=== PATIENT | female | born 1930 | race Caucasian/White ===

== ENCOUNTER 2017-10-29 22:01 | Observation (INO) | payer MEDICARE ==
[~2017-10-29] VITALS: Ht 154.9 cm; Wt 42.2 kg
[2017-10-29 22:01] VITALS: BP 169/67; PULSE 68; RESP 16; TEMP 98.1; O2SAT 100
[~2017-10-29 22:01] MED LIST: ATRO0.05 RIGHT EYE; B COTAB3 PO; CO Q100C9 OR; TOBRSUS RIGHT EYE; VITA250L OR
[2017-10-29] MEDS ORDERED: SODIUM CHLOR 0.9% 1000 ML INJ 1,000 ML IV ONE (22:05)
[2017-10-29 22:10] VITALS: O2SAT 100
[2017-10-29 22:14] LABS: AUTOMATED NEUTROPHIL # 8.4 TH/MM3 (1.8-7.7); BASOPHIL % 0.4 % (0.0-2.0); EOSINOPHIL % 0.2 % (0.0-4.0); HEMATOCRIT 40.3 % (35.0-46.0); HEMOGLOBIN 13.1 GM/DL (11.6-15.3); LYMPH % 12.4 % (9.0-44.0); LYMPHOCYTE # 1.2 TH/MM3 (1.0-4.8); MEAN CELL VOLUME 82.6 FL (80.0-100.0); MEAN CORPUSCULAR HEMOGLOBIN 26.8 PG (27.0-34.0); MEAN CORPUSCULAR HGB CONC 32.5 % (32.0-36.0); MEAN PLATELET VOLUME 8.1 FL (7.0-11.0); MONO % 3.7 % (0.0-8.0); MONOCYTE # 0.4 TH/MM3 (0-0.9); NEUT % 83.3 % (16.0-70.0); PLATELET COUNT 426 TH/MM3 (150-450); RED BLOOD COUNT 4.88 MIL/MM3 (4.00-5.30); RED CELL DISTRIBUTION WIDTH 15.2 % (11.6-17.2); WHITE BLOOD COUNT 10.1 TH/MM3 (4.0-11.0)
[2017-10-29 22:19] LABS: CHLORIDE 102 MEQ/L (98-107); SODIUM (NA) 136 MEQ/L (136-145)
[2017-10-29 22:22] LABS: BLOOD UREA NITROGEN 22 MG/DL (7-18); CALCIUM 10.7 MG/DL (8.5-10.1); GLUCOSE,RANDOM 186 MG/DL (74-106)
[2017-10-29 22:25] LABS: GLOMERULAR FILTRATION RATE 39 ML/MIN (>89)
[2017-10-29 22:26] LABS: PROTHROMBIN TIME - PATIENT 10.4 SEC (9.8-11.6)
[2017-10-29 22:30] LABS: TROPONIN I LESS THAN 0.02 NG/ML (0.02-0.05)
--- NOTE | 2017-10-29 22:30 | RADRPT ---
EXAM DATE/TIME: 10/29/2017 22:04 [facility] COMPARISON: No previous studies available for comparison. INDICATIONS : Stroke alert. Left side weakness. Confusion. RADIATION DOSE: 42.23 CTDIvol (mGy) This report was called by Dr Fischer to Dr Harris at 2227 MEDICAL HISTORY : None SURGICAL HISTORY : None. ENCOUNTER: Initial ACUITY: 1 day PAIN SCALE: 0/10 LOCATION: cranial TECHNIQUE: Multiple contiguous axial images were obtained of the head. Using automated exposure control and adj ustment of the mA and/or kV according to patient size, radiation dose was kept as low as reasonably a chievable to obtain optimal diagnostic quality images. DICOM format image data is available electro nically for review and comparison. FINDINGS: CEREBRUM: The ventricles are normal for age. No evidence of midline shift, mass lesion, hemorrhage or acute in farction. No extra-axial fluid collections are seen. POSTERIOR FOSSA: The cerebellum and brainstem are intact. The 4th ventricle is midline. The cerebellopontine angle i s unremarkable. EXTRACRANIAL: The visualized portion of the orbits is intact. SKULL: The calvaria is intact. No evidence of skull fracture. CONCLUSION: No acute disease. José Antonio Fischer Jr., MD on October 29, 2017 at 22:26 Board Certified Radiologist. This report was verified electronically.
[2017-10-29 22:41] VITALS: RESP 16; O2SAT 100
[2017-10-29] MEDS ORDERED: SENNOSIDES 8.6 MG TAB PO PRN (22:45)
[2017-10-29] MEDS ORDERED: ASPIRIN 325 MG TAB PO ONE (22:45)
[2017-10-29] MEDS ORDERED: ONDANSETRON HCL 4 MG/2 ML VIAL IVP PRN (22:45)
[2017-10-29] MEDS ORDERED: NALOXONE HCL 0.4 MG/ML AMP IV PUSH PRN (22:45)
[2017-10-29] MEDS ORDERED: LACTULOSE SYRUP 20 GM/30 ML CUP PO PRN (22:45)
[2017-10-29] MEDS ORDERED: SODIUM CHLORIDE 0.9% FLUSH 10 ML FLUSH IV FLUSH PRN (22:45)
[2017-10-29] MEDS ORDERED: BISACODYL 10 MG SUPP RECTAL PRN (22:45)
[2017-10-29] MEDS ORDERED: ACETAMINOPHEN 325 MG TAB PO PRN (22:45)
[2017-10-29] MEDS ORDERED: MAGNESIUM HYDROXIDE SUSP 30 ML CUP PO PRN (22:45)
[2017-10-29] MEDS ORDERED: ALPR.5 PO (22:46)
[2017-10-29] MEDS ORDERED: PRED5TAB PO (22:46)
[2017-10-29] MEDS ORDERED: ASPI1TAB57 PO (22:46)
[2017-10-29] MEDS ORDERED: IODIXANOL 320 MG/ML 10 ML VIAL (for Rad CT) IVCONTRAST ONE (22:52)
--- NOTE | 2017-10-29 22:55 | RADRPT ---
EXAM DATE/TIME: 10/29/2017 22:04 [facility] COMPARISON: No previous studies available for comparison. INDICATIONS : Stroke alert. Left side weakness. Confusion. IV CONTRAST: 50 cc Visipaque (iodixanol) IV ; Cumulative dose for multiple exams. RADIATION DOSE: 43.11 CTDIvol (mGy) ; Combined studies MEDICAL HISTORY : None SURGICAL HISTORY : None. ENCOUNTER: Initial ACUITY: 1 day PAIN SCALE: 0/10 LOCATION: cranial TECHNIQUE: Volumetric scanning was performed using a multi-row detector CT scanner. The data was post processed with a variety of visualization algorithms including full volume maximum intensity projection, multi -planar sliding thin slab reformation, curved planar reformation, and surface rendering techniques. Using automated exposure control and adjustment of the mA and/or kV according to patient size, radiat ion dose was kept as low as reasonably achievable to obtain optimal diagnostic quality images. DICO M format image data is available electronically for review and comparison. FINDINGS: There is excellent visualization of the major intracranial arteries out to the second-order branch ve ssels. There is no evidence for aneurysm, vessel truncation or stenosis, and no evidence for vascula r malformation. CONCLUSION: Normal examination. José Antonio Fischer Jr., MD on October 29, 2017 at 22:51 Board Certified Radiologist. This report was verified electronically.
--- NOTE | 2017-10-29 23:00 | PD ---
HPI Chief Complaint: Stroke Alert Time Seen by Provider: 22:05 Travel History International Travel<30 days: No Contact w/Intl Traveler<30days: No Traveled to known affect area: No History of Present Illness HPI 86-year-old female arrives as a stroke alert. History is provided by the patient, by EMS and by the patient's son. The patient was at her house today and her son and [id number]-bo-jwn came over for dinner. The patient received a phone call from her sister and suddenly became confused. She walked around the house and was very anxious. She repeatedly stated I am fine. It should be noted that one 1 year ago to the day the patient's . Fire department was concern for stroke. EMS reports blood pressure approximately 180 /90. Pulse reported to be 80. Blood sugar reported to be 185. The son reports the patient lives alone. She has no history of dementia or cognitive deficit. She takes Xanax nightly for sleep. It is unclear she took some before the event this evening. She had mentioned during dinner that her a year ago to the day, and unusual, according to the son. The son and nvrrcptl-ju-wuj did not observe facial asymmetry or motor weakness on either side. There is no loss of consciousness. Son notes an episode of diarrhea occurred this morning. PFSH Past Medical History Hx Anticoagulant Therapy: Yes (ASA 81mg) Cancer: No Diabetes: No Diminished Hearing: Yes Hepatitis: No Hiatal Hernia: No Thyroid Disease: No PNEUMOCCOCAL Vaccine (Year): 1 ?: Not Menopausal: Yes Past Surgical History Eye Surgery: Yes Gynecologic Surgery: Yes (D&C) Pacemaker: No Other Surgery: Yes Social History Alcohol Use: No Tobacco Use: No Substance Use: No Allergies-Medications (Allergen,Severity, Reaction): Coded Allergies: meperidine (Unverified Allergy, Intermediate, Tachycardia, 10/29/17) Reported Meds & Prescriptions Reported Meds & Active Scripts Active Reported Prednisone 5 Mg Tab 5 Mg PO DAILY Aspirin 81 (Aspirin) 81 Mg Tabdr 81 Mg PO DAILY Xanax (Alprazolam) 0.5 Mg Tab 0.5 Mg PO BID PRN Review of Systems Except as stated in HPI: all other systems reviewed are Neg General / Constitutional: No: Chills Physical Exam Narrative GENERAL: 86-year-old female pleasant well-nourished well-developed mild distress due to anxiety and or pain Vital Signs Date Time Temp Pulse Resp B/P (MAP) Pulse Ox O2 Delivery O2 Flow Rate FiO2 10/29/17 22:01 98.1 68 16 169/67 (101) 100 SKIN: Warm and dry. HEAD: Atraumatic. Normocephalic. EYES: Pupils equal and round. No scleral icterus. No injection or drainage. ENT: No nasal bleeding or discharge. Mucous membranes pink and moist. NECK: Trachea midline. No JVD. CARDIOVASCULAR: Regular rate and rhythm. RESPIRATORY: No accessory muscle use. Clear to auscultation. Breath sounds equal bilaterally. GASTROINTESTINAL: Abdomen soft, non-tender, nondistended. Hepatic and splenic margins not palpable. MUSCULOSKELETAL: Extremities without clubbing, cyanosis, or edema. No obvious deformities. NEUROLOGICAL: Cranial nerves III through XII are normal. Motor function is equal in the upper and lower extremities. The patient has normal speech. The patient can speak in sentences here. The patient struggles with recall of her address. The patient struggles with recall of of her date of including month day and year. She can identify objects including watch and pen and name them. She can repeat simple phrases easily. There is no visual field deficit. The patient can stick out her left thumb. PSYCHIATRIC: Appropriate mood and affect; insight and judgment normal. Data Data Last Documented VS Vital Signs Date Time Temp Pulse Resp B/P (MAP) Pulse Ox O2 Delivery O2 Flow Rate FiO2 10/29/17 22:10 100 21 10/29/17 22:01 98.1 68 16 169/67 (101) Orders Orders Cath For Specimen (10/29/17 22:05) Neuro Checks Q2HX12,Q4H (10/29/17 22:05) Nursing Bedside Swallow Assess .ONCE (10/29/17 22:05) Activity Bed Rest (10/29/17 22:05) Diet Npo (10/30/17 Breakfast) Prothrombin Time / Inr (Pt) (10/29/17 22:05) Act Partial Throm Time (Ptt) (10/29/17 22:05) Complete Blood Count With Diff (10/29/17 22:05) Basic Metabolic Panel (Bmp) (10/29/17 22:05) Fibrinogen (10/29/17 22:05) Creatine Kinase (Cpk) (10/29/17 22:05) Troponin I (10/29/17 22:05) Ua Includes Microscopic (10/29/17 22:05) Drug Screen, Random Urine (10/29/17 22:05) Type And Screen (10/29/17 22:05) Ct Brain W/O Iv Contrast(Rout) (10/29/17 ) Cta Brain W Iv Contrast W 3d (10/29/17 22:05) Cta Neck W Iv Contrast W 3d (10/29/17 22:05) Electrocardiogram (10/29/17 ) Consult Neurology (10/29/17 22:05) Sodium Chlor 0.9% 1000 Ml Inj (Ns 1000 M (10/29/17 22:05) Blood Glucose (10/29/17 22:05) Ecg Monitoring (10/29/17 22:05) Iv Access Insert/Monitor (10/29/17 22:05) NPO (10/29/17 22:05) Oximetry (10/29/17 22:05) Resp Oxygen Nc Stroke (10/29/17 ) (Hub Use Only)Inp Phy Cons/Ref (10/29/17 ) Aspirin (Aspirin) (10/29/17 22:45) [place] (10/29/17 22:33) Admit Order (Ed Use Only) (10/29/17 ) Aco Coordinator / Telemetry NICOLASA.Q8H (10/29/17 22:38) Vital Signs (Adult) Q4H (10/29/17 22:38) Activity Bed Rest (10/29/17 22:38) Notify Dr: Other (10/29/17 22:38) Labs Laboratory Tests Test 10/29/17 22:10 White Blood Count 10.1 TH/MM3 Red Blood Count 4.88 MIL/MM3 Hemoglobin 13.1 GM/DL Hematocrit 40.3 % Mean Corpuscular Volume 82.6 FL Mean Corpuscular Hemoglobin 26.8 PG Mean Corpuscular Hemoglobin Concent 32.5 % Red Cell Distribution Width 15.2 % Platelet Count 426 TH/MM3 Mean Platelet Volume 8.1 FL Neutrophils (%) (Auto) 83.3 % Lymphocytes (%) (Auto) 12.4 % Monocytes (%) (Auto) 3.7 % Eosinophils (%) (Auto) 0.2 % Basophils (%) (Auto) 0.4 % Neutrophils # (Auto) 8.4 TH/MM3 Lymphocytes # (Auto) 1.2 TH/MM3 Monocytes # (Auto) 0.4 TH/MM3 Eosinophils # (Auto) 0.0 TH/MM3 Basophils # (Auto) 0.0 TH/MM3 CBC Comment DIFF FINAL Differential Comment Prothrombin Time 10.4 SEC Prothromb Time International Ratio 1.0 RATIO Activated Partial Thromboplast Time 24.3 SEC Fibrinogen 499 mg/dL Blood Urea Nitrogen 22 MG/DL Creatinine 1.30 MG/DL Random Glucose 186 MG/DL Calcium Level 10.7 MG/DL Sodium Level 136 MEQ/L Potassium Level 4.2 MEQ/L Chloride Level 102 MEQ/L Carbon Dioxide Level 26.0 MEQ/L Anion Gap 8 MEQ/L Estimat Glomerular Filtration Rate 39 ML/MIN Total Creatine Kinase 25 U/L Troponin I LESS THAN 0.02 NG/ML MDM Medical Screen Exam Complete: Yes Emergency Medical Condition: Yes Differential Diagnosis Stroke, polypharmacy, UTI, metabolic disarray Narrative Course Patient arrived and I could not definitively exclude CVA because she could not state her date of or her mailing address which is abnormal for her and evidently started acutely. CT the head is unremarkable. There is no focal motor weakness. The cranial nerves are normal. We had a long discussion with the patient's son and the patient's wiqudonl-rk-hsz. Both are opposed to using TPA. The patient will be admitted for further investigation/evaluation. Aspirin given here. Overall his case presented significant diagnostic challenge because multiple other potential etiologies may account for the very subtle neurologic deficit. I discussed this in detail with the son and daughter- in-law and both were in agreement with avoidance of TPA. Dr Manley of neurology consultation/discussion appreciated EKG shows sinus rhythm with a rate of 78 sinus arrhythmia noted. CBC & BMP Diagram 10/29/17 22:10 Calcium Level 10.7 H Last Impressions Neck CTA 10/29/172204 Signed Impressions: Service Date/Time: Sunday, October 29, 2017 22:04 - CONCLUSION: 1. Calcified atherosclerotic plaque involving the carotids bilaterally more abundant on the left than the right. No ulceration or stenosis. 2. Patent vertebral arteries. 4 mm nodule within the left upper lobe. Consideration could be made to CT of the thorax in 12 months to document stability. José Antonio Fischer Jr., MD Head CTA 10/29/172204 Signed Impressions: Service Date/Time: Sunday, October 29, 2017 22:04 - CONCLUSION: Normal examination. José Antonio Fischer Jr., MD Head CT 10/29/17 0000 Signed Impressions: Service Date/Time: Sunday, October 29, 2017 22:04 - CONCLUSION: No acute disease. José Antonio Fischer Jr., MD Critical Care Narrative Aggregate critical care time was 35 minutes. Time to perform other separately billable procedures was not included in the critical care time. My time did not include minutes spent treating any other patients simultaneously or on activities that did not directly contribute to the patient's treatment. The services I provided to this patient were to treat and/or prevent clinically significant deterioration that could result in: Permanent deficit, cardiopulmonary arrest I provided critical care services requiring my management, as noted below: Chart data review, documentation time, medication orders and management, vital sign assessments/reviewing monitor data, ordering and reviewing lab tests, ordering and interpreting/reviewing x-rays and diagnostic studies, care of the patient and discussion of the patient with the admitting physicians. Stroke Alert NIHSS NIH Stroke Scale Result: 1 NIHSS Time Completed: 22:05 Thrombolytic Contraindications Contraindications: Refusal of Treatment Diagnosis Diagnosis: Primary Impression: Altered mental status Qualified Codes: R41.82 - Altered mental status, unspecified Admitting Physician Requests: Admit Jack Harris MD October 29, 2017 23:00
--- NOTE | 2017-10-29 23:02 | RADRPT ---
EXAM DATE/TIME: 10/29/2017 22:04 [facility] COMPARISON: No previous studies available for comparison. INDICATIONS : Stroke alert. Left side weakness. Confusion. IV CONTRAST: 50 cc Visipaque (iodixanol) IV ; Cumulative dose for multiple exams. RADIATION DOSE: 43.11 CTDIvol (mGy) ; Combined studies MEDICAL HISTORY : None SURGICAL HISTORY : None. ENCOUNTER: Initial ACUITY: 1 day PAIN SCALE: 0/10 LOCATION: neck Elevated flow velocities and ICA/CCA ratios have been found to correlate with increased degrees of vessel stenosis, calculated as percentage of diameter relative to a normal segment of distal ICA/CCA. TECHNIQUE: Volumetric scanning was performed using a multirow detector CT scanner. The data was post processed with a variety of visualization algorithms including full-volume maximum intensity projection, multip lanar sliding thin-slab reformation, curved-planar reformation, and surface-rendering techniques. Us ing automated exposure control and adjustment of the mA and/or kV according to patient size, radiatio n dose was kept as low as reasonably achievable to obtain optimal diagnostic quality images. DICOM f ormat image data is available electronically for review and comparison. FINDINGS: AORTIC ARCH: Breathing motion artifact degrades the evaluation of the origin of the arch vessels. There is calcifi ed plaque involving the left subclavian artery origin but no hemodynamically significant stenosis is felt present. RIGHT CAROTID: Mild calcified plaque involving the carotid bulb and ICA origin. No ulceration or luminal narrowing. The extracranial ICA is tortuous particularly approaching the skull base. ECA and CCA are patent as w ell. LEFT CAROTID: More abundant calcified plaque involving the carotid bulb and proximal ICA than on the contralateral side. No ulceration or luminal narrowing. The extracranial ICA is torturous particularly near the sku ll base. The ECA and CCA are patent. VERTEBRALS: The vertebral arteries have a symmetric diameter. No stenotic lesions are seen. A degenerative cervical spine. A 4 mm nodule within the left upper lobe. Calcified granuloma within t he left upper lobe. CONCLUSION: 1. Calcified atherosclerotic plaque involving the carotids bilaterally more abundant on the left than the right. No ulceration or stenosis. 2. Patent vertebral arteries. 4 mm nodule within the left upper lobe. Consideration could be made to CT of the thorax in 12 months to document stability. José Antonio Fischer Jr., MD on October 29, 2017 at 22:55 Board Certified Radiologist. This report was verified electronically.
[2017-10-29 23:29] VITALS: BP 116/71; PULSE 84; RESP 16; O2SAT 100
[2017-10-29 23:55] VITALS: PULSE 72
[2017-10-30] VITALS (8 sets, daily range): BP systolic 130–165; BP diastolic 56–77; PULSE 62–81; RESP 16–20; TEMP 97.8–99.9; O2SAT 96–100
[2017-10-30 07:10] LABS: BICARBONATE 23.2 MEQ/L (21.0-32.0); CALCIUM 9.3 MG/DL (8.5-10.1); CREATININE 0.7 MG/DL (0.50-1.00)
[2017-10-30] MEDS: SODIUM CHLORIDE 0.9% FLUSH 10 ML FLUSH IV FLUSH SCH ×2 (09:00→21:29)
--- NOTE | 2017-10-30 09:00 | PD.CONS ---
History of Present Illness Service Neurology Consult Requested By Medical Team Reason for Consult CVA, AMS Primary Care Physician Vinod Tovar MD History of Present Illness 86 y/o female brought to the ER last night by her son. Her son reports they were having dinner when the pt received a phone call from her daughter. During the phone call pt became confused and began speaking gibberish. Her son took the phone and his sister reported as well she had not been making sense. The pt proceeded to try to use the remote control, her computer and other devices but kept telling her son she could not figure out how they worked. No reported weakness or sensory change. No known illness, though pt had diarrhea earlier that day. Son denies any underlying memory problems. He has dinner with her every night. She lives independently. No previous hx of stroke or TIA. Currently takes ASA 81mg at home, Prednisone after episode of shingles 2 yrs ago for post herpetic neuralgia and Xanax for her anxiety. She reports today that she needs to stop the Xanax. History is obtained from her son as the pt has difficulty giving a history. (Martina Polk) Review of Systems Constitutional: Negative except HPI Eye: Negative Except HPI ENMT: Negative except HPI Respiratory: Negative except HPI Cardiovascular: Negative except HPI Gastrointestinal: Diarrhea Jose Martin/Lymph: Negative except HPI Musculoskeletal: Negative except HPI Neurologic: Confusion Psychiatric: Anxiety All other ROS: ROS reviewed as documented in chart (Martina Polk) Past Family Social History Allergies: Coded Allergies: meperidine (Unverified Allergy, Intermediate, Tachycardia, 10/29/17) Past Medical History anxiety, shingles, post-herpetic neuralgia Past Surgical History cataract Active Ordered Medications Current Medications Medications (Trade) Dose Ordered Sig/Anisha Route Start Time Stop Time Status Last Admin Sodium Chloride 1,000 ml @ 70 mls/hr [id number] ONCE IV 10/29/17 22:05 10/30/17 12:22 10/29/17 23:03 (NS Flush) 2 ml UNSCH PRN IV FLUSH 10/29/17 22:45 (NS Flush) 2 ml BID IV FLUSH 10/30/17 09:00 (Tylenol) 650 mg Q4H PRN PO 10/29/17 22:45 (Zofran Inj) 4 mg Q6H PRN IVP 10/29/17 22:45 (Narcan Inj) 0.4 mg UNSCH PRN IV PUSH 10/29/17 22:45 (Milk Of Magnesia Liq) 30 ml Q12H PRN PO 10/29/17 22:45 (Senokot) 17.2 mg Q12H PRN PO 10/29/17 22:45 (Dulcolax Supp) 10 mg DAILY PRN RECTAL 10/29/17 22:45 (Lactulose Liq) 30 ml DAILY PRN PO 10/29/17 22:45 Family History no fam hx of dementia or stroke Social History smoked rarely many years ago, does not drink, lives alone, was a homemaker and real estate investor, now retired, has 4 children (Martina Polk) Exam I&O / VS Vital Signs Date Time Temp Pulse Resp B/P (MAP) Pulse Ox O2 Delivery O2 Flow Rate FiO2 10/30/17 08:00 99.3 74 16 139/67 (91) 96 10/30/17 04:12 99.9 71 20 160/73 (102) 98 10/30/17 00:00 98.3 67 18 165/76 (105) 100 10/29/17 23:55 72 10/29/17 23:41 10/29/17 23:29 84 16 116/71 (86) 100 Room Air 10/29/17 22:43 100 Room Air 10/29/17 22:41 16 100 Room Air 10/29/17 22:10 100 21 10/29/17 22:10 100 21 10/29/17 22:01 98.1 68 16 169/67 (101) 100 General: No acute distress Eye: PERRL, EOMI Respiratory: Non-labored respirations Cardiology: Normal rate Musculoskeletal: ROM Neurologic: Alert Psychiatric: Cooperative Exam Comments pt is alert to self and her son, she does not know the date (states October or November , , and unsure of year), cannot tell me the current president, unable to give history, she has difficulty following 2 step commands, moving all extremities against gravity, no drift or leg lag, reflexes are brisk, cataract changes noted in the right eye, no facial droop, sensory exam is unreliable, gait withheld due to fall concerns, f-n-f intact, no tremor, no ataxia, no facial asymmetry (Martina Polk) Review/Management Diagnosis/Plan: (1) Altered mental status ICD Codes: R41.82 - Altered mental status, unspecified Status: Acute Plan: CT no acute abnormalities will check MRI brain EEG for seizure vs encephalopathy labs for dementia, delirium UA pending (2) Encephalopathy ICD Codes: G93.40 - Encephalopathy, unspecified Status: Acute Plan: infectious vs metabolic EEG brain labs for underlying causes repeat BMP pending for electrolytes (3) Post herpetic neuralgia ICD Codes: B02.29 - Other postherpetic nervous system involvement Status: Chronic (4) Hypertension ICD Codes: I10 - Essential (primary) hypertension Status: Acute (5) Anxiety ICD Codes: F41.9 - Anxiety disorder, unspecified Status: Chronic Plan: takes Xanax at home, would consider changing her to SSRI once she is stabilized (6) TIA (transient ischemic attack) ICD Codes: G45.9 - Transient cerebral ischemic attack, unspecified Status: Acute Plan: TIA vs encephalopathy CT unremarkable MRI pending on ASA 81mg daily will check Lipid Panel CTA head unremarkable CTA neck no ulceration or stenosis BP control continue telemetry ECHO (Martian Polk) Diagnosis/Plan: (1) Altered mental status ICD Codes: R41.82 - Altered mental status, unspecified Status: Acute Plan: probable tia denies any excessive benzo intake takes aspirin 3x/week CT no acute abnormalities will check MRI brain- declines EEG for seizure vs encephalopathy esr significantly elevated- on prednisone for pmr at higher risk for vascular events with underlying immune condition aspirin + plavix for now; d/c aspirin in 6-8 weeks d/c planning from neuro and outpatient f/u seen and examined. d/w PA. agree with above (2) Encephalopathy ICD Codes: G93.40 - Encephalopathy, unspecified Status: Acute Plan: infectious vs metabolic EEG brain labs for underlying causes repeat BMP pending for electrolytes (Pako Art MD) Martina Polk October 30, 2017 09:00 Pako Art MD October 30, 2017 17:20
[2017-10-30 10:53] LABS: C-REACTIVE PROTEIN 1.88 MG/DL (0.00-0.30)
[2017-10-30] MEDS ORDERED: ASPIRIN 325 MG TAB PO ONE (12:45)
[2017-10-30] MEDS ORDERED: ALPRAZolam 0.5 MG TAB PO PRN (12:45)
[2017-10-30] MEDS: predniSONE 5 MG TAB PO SCH (12:45)
[2017-10-30] MEDS ORDERED: POTASSIUM CHLORIDE 10 MEQ CONTROLLED RELEASE TAB PO ONE (12:45)
[2017-10-30] MEDS ORDERED: LORazepam 2 MG/ML VIAL IV PUSH ONE (14:15)
--- NOTE | 2017-10-30 14:29 | HHI.DCPOC ---
Discharge Care Plan Diagnosis: (1) Altered mental status (2) PMR (polymyalgia rheumatica) Goals to Promote Your Health * To prevent worsening of your condition and complications * To maintain your health at the optimal level Directions to Meet Your Goals Take your medications as prescribed Follow your dietary instruction Follow activity as directed Keep your appointments as scheduled Take your immunizations and boosters as scheduled If your symptoms worsen call your PCP, if no PCP go to Urgent Care Center or Emergency Room Smoking is Dangerous to Your Health. Avoid second hand smoke Call the 24-hour hour crisis hotline for domestic abuse at Marilu Coon MD October 30, 2017 14:29
--- NOTE | 2017-10-30 14:34 | HHI.HP ---
[facility] Primary Care Physician Vinod Tovar MD Admission Diagnosis AMS Diagnoses: Chief Complaint: Acute neurological changes Travel History International Travel<30 Days: No Contact w/Intl Traveler <30 Da: No Traveled to Known Affected Are: No History of Present Illness This patient is an 86-year-old who has for the last year been suffering from anxiety and has been taking her Xanax at bedtime and in the middle the night. Patient's comes to the hospital with her family says that she was very anxious and confused at the house. There was a concern for stroke because she was unable to speak clearly. Family did bring her to the hospital for further evaluation and it is noted that the original blood pressure is 180/90. Patient does not have a history of hypertension. She normally takes prednisone for polymyalgia rheumatica and this has gotten better and the primary care doctor office was tapering her steroids so that now she is only on 5 mg a day. She has had postherpetic neuralgia but does not take narcotics for pain is no longer on treatment for that. Her emergency room exam was back to baseline and TPA was not indicated due to recovery. Patient at this time is been observed overnight appears to be back at her baseline per family was at the bedside. Patient is recommended for further evaluation due to acute neurological complaints Review of Systems Constitutional: DENIES: Diaphoretic episodes, Fatigue, Fever, Weight gain, Weight loss, Chills, Dizziness, Change in appetite, Night Sweats Endocrine: DENIES: Abnorml menstrual pattern, Heat/cold intolerance, Polydipsia , Polyuria, Polyphagia Eyes: DENIES: Blurred vision, Diplopia, Eye inflammation, Eye pain, Vision loss , Photosensitivity, Double Vision Ears, nose, mouth, throat: DENIES: Tinnitus, Hearing loss, Vertigo, Nasal discharge, Oral lesions, Throat pain, Hoarseness, Ear Pain, Running Nose, Epistaxis, Sinus Pain, Toothache, Odynophagia Respiratory: DENIES: Apneas, Cough, Snoring, Wheezing, Hemoptysis, Sputum production, Shortness of breath Cardiovascular: DENIES: Chest pain, Palpitations, Syncope, Dyspnea on Exertion , PND, Lower Extremity Edema, Orthopnea, Claudication Genitourinary: DENIES: Abnormal vaginal bleeding, Dysmenorrhea, Dyspareunia, Sexual dysfunction, Urinary frequency, Urinary incontinence, Urgency, Hematuria , Dysuria, Nocturia, Vaginal discharge Musculoskeletal: DENIES: Joint pain, Muscle aches, Stiffness, Joint Swelling, Back pain, Neck pain Integumentary: DENIES: Abnormal pigmentation, Pruritus, Rash, Nail changes, Breast masses, Breast skin changes, Nipple discharge Hematologic/lymphatic: DENIES: Bruising, Lymphadenopathy Immunologic/allergic: DENIES: Eczema, Urticaria Neurologic: DENIES: Abnormal gait, Headache, Localized weakness, Paresthesias, Seizures, Speech Problems, Tremor, Poor Balance Psychiatric: COMPLAINS OF: Confusion, DENIES: Anxiety, Mood changes, Depression , Hallucinations, Agitation, Suicidal Ideation, Homicidal Ideation, Delusions Except as stated in HPI: all other systems reviewed are Neg Past Family Social History Past Medical History Post herpetic neuralgia Polymyalgia rheumatica Anxiety Past Surgical History Denies Reported Medications Reviewed in the EMR and reviewed with her primary care provider Allergies: Coded Allergies: meperidine (Unverified Allergy, Intermediate, Tachycardia, 10/29/17) Active Ordered Medications Reviewed in the EMR Family History Family history of hypertension Social History No tobacco or alcohol dependency Takes Xanax frequently Lives alone and is a Physical Exam Vital Signs Vital Signs Date Time Temp Pulse Resp B/P (MAP) Pulse Ox O2 Delivery O2 Flow Rate FiO2 10/30/17 12:00 98.3 63 16 130/56 (80) 97 10/30/17 08:00 99.3 74 16 139/67 (91) 96 10/30/17 07:11 78 10/30/17 04:12 99.9 71 20 160/73 (102) 98 10/30/17 00:00 98.3 67 18 165/76 (105) 100 10/29/17 23:55 72 10/29/17 23:41 10/29/17 23:29 84 16 116/71 (86) 100 Room Air 10/29/17 22:43 100 Room Air 10/29/17 22:41 16 100 Room Air 10/29/17 22:10 100 21 10/29/17 22:10 100 21 10/29/17 22:01 98.1 68 16 169/67 (810) 100 Physical Exam GENERAL: This is a well-nourished, well-developed patient, who is frail SKIN: No rashes, ecchymoses or lesions. Cool and dry. HEAD: Atraumatic. Normocephalic. No temporal or scalp tenderness. EYES: Pupils equal round and reactive. Extraocular motions intact. No scleral icterus. No injection or drainage. ENT: Nose without bleeding, purulent drainage or septal hematoma. Throat without erythema, tonsillar hypertrophy or exudate. Uvula midline. Airway patent. NECK: Trachea midline. No JVD or lymphadenopathy. Supple, nontender, no meningeal signs. CARDIOVASCULAR: Regular rate and rhythm without murmurs, gallops, or rubs. RESPIRATORY: Clear to auscultation. Breath sounds equal bilaterally. No wheezes , rales, or rhonchi. GASTROINTESTINAL: Abdomen soft, non-tender, nondistended. No hepato-splenomegaly , or palpable masses. No guarding. MUSCULOSKELETAL: Extremities without clubbing, cyanosis, or edema. No joint tenderness, effusion, or edema noted. No calf tenderness. Negative Homans sign bilaterally. NEUROLOGICAL: Awake and alert. Cranial nerves II through XII intact. Motor and sensory grossly within normal limits. Five out of 5 muscle strength in all muscle groups. Normal speech. Laboratory Laboratory Tests Test 10/29/17 22:10 10/30/17 05:46 10/30/17 10:20 White Blood Count 10.1 Red Blood Count 4.88 Hemoglobin 13.1 Hematocrit 40.3 Mean Corpuscular Volume 82.6 Mean Corpuscular Hemoglobin 26.8 Mean Corpuscular Hemoglobin Concent 32.5 Red Cell Distribution Width 15.2 Platelet Count 426 Mean Platelet Volume 8.1 Neutrophils (%) (Auto) 83.3 Lymphocytes (%) (Auto) 12.4 Monocytes (%) (Auto) 3.7 Eosinophils (%) (Auto) 0.2 Basophils (%) (Auto) 0.4 Neutrophils # (Auto) 8.4 Lymphocytes # (Auto) 1.2 Monocytes # (Auto) 0.4 Eosinophils # (Auto) 0.0 Basophils # (Auto) 0.0 CBC Comment DIFF FINAL Differential Comment Prothrombin Time 10.4 Prothromb Time International Ratio 1.0 Activated Partial Thromboplast Time 24.3 Fibrinogen 499 Blood Urea Nitrogen 22 15 Creatinine 1.30 0.70 Random Glucose 186 126 Calcium Level 10.7 9.3 Sodium Level 136 140 Potassium Level 4.2 3.4 Chloride Level 102 108 Carbon Dioxide Level 26.0 23.2 Anion Gap 8 9 Estimat Glomerular Filtration Rate 39 79 Total Creatine Kinase 25 Troponin I LESS THAN 0.02 Erythrocyte Sedimentation Rate 123 Ammonia 18 C-Reactive Protein 1.88 Thyroid Stimulating Hormone 3rd Gen 1.380 Result Diagram: 10/29/17220910/30/17 0546 Imaging Last Impressions Neck CTA 10/29/172204 Signed Impressions: Service Date/Time: Sunday, October 29, 2017 22:04 - CONCLUSION: 1. Calcified atherosclerotic plaque involving the carotids bilaterally more abundant on the left than the right. No ulceration or stenosis. 2. Patent vertebral arteries. 4 mm nodule within the left upper lobe. Consideration could be made to CT of the thorax in 12 months to document stability. José Antonio Fischer Jr., MD Head CTA 10/29/172204 Signed Impressions: Service Date/Time: Sunday, October 29, 2017 22:04 - CONCLUSION: Normal examination. José Antonio Fischer Jr., MD Head CT 10/29/17 0000 Signed Impressions: Service Date/Time: Sunday, October 29, 2017 22:04 - CONCLUSION: No acute disease. José Antonio Fischer Jr., MD Assessment and Plan Problem List: (1) PMR (polymyalgia rheumatica) ICD Code: M35.3 - Polymyalgia rheumatica Plan: Patient on chronic steroids which per her primary care doctor are 5 mg daily I did speak with Dr. Tovar's office today regarding her medical history and she has a history of PMR, postherpetic neuralgia which is currently not being treated and anxiety (2) TIA (transient ischemic attack) ICD Code: G45.9 - Transient cerebral ischemic attack, unspecified Status: Acute Plan: Workup in progress as much as the patient will allow. Patient has refused her MRI. I did speak with the patient's primary care physician she does have a follow-up at the office November 23. Patient should continue aspirin She has been very apprehensive about home health care in her home and has generally declined physical therapy or rehab evaluations Marilu Cono MD October 30, 2017 14:34
[2017-10-30 15:15] LABS: CHOLESTEROL/ HDL RATIO 3.24 RATIO; HDL CHOLESTEROL 50.9 MG/DL (40.0-60.0)
[2017-10-30] MEDS ORDERED: WALKER WHEELS/F1 MIS (15:22)
[2017-10-30 15:37] LABS: FREE T4 1.19 NG/DL (0.76-1.46)
[2017-10-30 15:42] LABS: FOLATE GREATER THAN 20.0 NG/ML (3.1-17.5)
--- NOTE | 2017-10-30 17:06 | EKG ---
Date Performed: 10/29/2017 Time Performed: 22:22:16 PTAGE: 86 years EKG: Sinus rhythm WITH MARKED SINUS ARRHYTHMIA POSSIBLE LEFT ATRIAL ENLARGEMENT POSSIBLE LEFT VENTRICULAR HYPERTROPHY POSSIBLE SEPTAL MYOCARDIAL INFARCTION ABNORMAL ECG PREVIOUS TRACING : 10/31/2010 13.30 Since the previous tracing, no significant change noted DOCTOR: Carolina Mike Interpretating Date/Time 10/30/2017 17:04:32
[2017-10-30] MEDS: CLOPIDOGREL 75 MG TAB PO SCH (18:07)
[2017-10-30 20:00] LABS: BILIRUBIN, URINE NEG (NEG); BLOOD, URINE SMALL (NEG); GLUCOSE,URINE NEG (NEG); KETONE, URINE NEG (NEG); NITRITE,URINE NEG (NEG); URINE COLOR YELLOW (YELLW/STRAW); URINE LEUKOCYTE ESTERASE NEG (NEG)
[2017-10-30 20:06] LABS: WBC, URINE 0-2 /hpf (0-5)
[2017-10-30 20:07] LABS: SQUAMOUS EPITHELIAL CELL URINE 0-5 /hpf (0-5)
--- NOTE | 2017-10-30 20:48 | MG ---
cc: Martin Manley MD INDICATIONS: Difficulty talking, confusion. MEDICATIONS: Aspirin. DESCRIPTION: Diffuse symmetric beta rhythms are seen, which looks like a medication effect. No focal abnormalities were noted. No seizure activity is seen. Photic stimulation is performed without any posterior driving. Some hand and feet twitching were noted, but these do not correlate with any epileptiform or seizure activity or change in the EEG. Hyperventilation was not performed. IMPRESSION: Diffuse beta rhythms consistent with a medication effect, but no focal abnormalities noted. No seizure activity was seen. Specifically, some left hand and feet twitching and mouth twitching did not correlate with any seizure activity. MD JOSIANE Wilson/ARNOLD , 07:53 PM , 08:47 PM
[2017-10-30] MEDS ORDERED: ATORVASTATIN 10 MG TAB PO SCH (21:00)
[2017-10-30] MEDS ORDERED: AMITRIPTYLINE HCL 50 MG TAB PO SCH (21:00)
[2017-10-31] VITALS: BP 174/78; PULSE 65; RESP 14; TEMP 99.1; O2SAT 96
[2017-10-31 07:50] VITALS: BP 136/65; PULSE 72; RESP 20; TEMP 98.2; O2SAT 96
[2017-10-31] MEDS: CLOPIDOGREL 75 MG TAB PO SCH (08:04)
[2017-10-31] MEDS: predniSONE 5 MG TAB PO SCH (08:04)
[2017-10-31] MEDS: SODIUM CHLORIDE 0.9% FLUSH 10 ML FLUSH IV FLUSH SCH (08:06)
[2017-10-31 08:30] VITALS: PULSE 77
[2017-10-31] MEDS ORDERED: ASPIRIN EC 81 MG TABEC PO SCH ×2 (09:00)
[2017-10-31] MEDS ORDERED: ASPIRIN EC 325 MG TABEC PO SCH (09:00)
[2017-10-31] MEDS ORDERED: AMIT50TA3 PO (09:14)
[2017-10-31] MEDS ORDERED: PLAV75TA29 PO (09:15)
[2017-10-31 10:33] LABS: RPR SCREEN FOR REFLEX NON-REACTIVE (NON-REACTVE)
--- NOTE | 2017-10-31 10:35 | HHI.DS ---
Discharge Summary Admission Date October 29, 2017 at 22:39 Discharge Date: October 31, 2017 Admitting Diagnosis AMS (1) PMR (polymyalgia rheumatica) ICD Code: M35.3 - Polymyalgia rheumatica (2) TIA (transient ischemic attack) ICD Code: G45.9 - Transient cerebral ischemic attack, unspecified Status: Acute Procedures None Brief History - From Admission This patient is an 86-year-old who has for the last year been suffering from anxiety and has been taking her Xanax at bedtime and in the middle the night. Patient's comes to the hospital with her family says that she was very anxious and confused at the house. There was a concern for stroke because she was unable to speak clearly. Family did bring her to the hospital for further evaluation and it is noted that the original blood pressure is 180/90. Patient does not have a history of hypertension. She normally takes prednisone for polymyalgia rheumatica and this has gotten better and the primary care doctor office was tapering her steroids so that now she is only on 5 mg a day. She has had postherpetic neuralgia but does not take narcotics for pain is no longer on treatment for that. Her emergency room exam was back to baseline and TPA was not indicated due to recovery. Patient at this time is been observed overnight appears to be back at her baseline per family was at the bedside. Patient is recommended for further evaluation due to acute neurological complaints CBC/BMP: 10/29/17 2210 10/30/17 0546 Significant Findings Laboratory Tests Test 10/29/17 22:10 10/30/17 05:46 10/30/17 10:20 10/30/17 19:15 Mean Corpuscular Hemoglobin 26.8 PG (27.0-34.0) Neutrophils (%) (Auto) 83.3 % (16.0-70.0) Neutrophils # (Auto) 8.4 TH/MM3 (1.8-7.7) Fibrinogen 499 mg/dL (227-377) Blood Urea Nitrogen 22 MG/DL (7-18) Creatinine 1.30 MG/DL (0.50-1.00) Random Glucose 186 MG/DL (74-106) 126 MG/DL (74-106) Calcium Level 10.7 MG/DL (8.5-10.1) Estimat Glomerular Filtration Rate 39 ML/MIN (>89) 79 ML/MIN (>89) Total Creatine Kinase 25 U/L (26-192) Troponin I LESS THAN 0.02 NG/ML Erythrocyte Sedimentation Rate 123 mm/hr (0-30) Potassium Level 3.4 MEQ/L (3.5-5.1) Chloride Level 108 MEQ/L (98-107) LDL Cholesterol 103 MG/DL (0-99) C-Reactive Protein 1.88 MG/DL (0.00-0.30) Vitamin B12 Level GREATER THAN 2000 PG/ML Folate GREATER THAN 20.0 NG/ML Urine Occult Blood SMALL (NEG) Urine RBC 4-9 /hpf (0-3) Urine Benzodiazepines Screen POS (NEG) Imaging Last Impressions Neck CTA 10/29/172204 Signed Impressions: Service Date/Time: Sunday, October 29, 2017 22:04 - CONCLUSION: 1. Calcified atherosclerotic plaque involving the carotids bilaterally more abundant on the left than the right. No ulceration or stenosis. 2. Patent vertebral arteries. 4 mm nodule within the left upper lobe. Consideration could be made to CT of the thorax in 12 months to document stability. José Antonio Fischer Jr., MD Head CTA 10/29/172204 Signed Impressions: Service Date/Time: Sunday, October 29, 2017 22:04 - CONCLUSION: Normal examination. José Antonio Fischer Jr., MD Head CT 10/29/17 0000 Signed Impressions: Service Date/Time: Sunday, October 29, 2017 22:04 - CONCLUSION: No acute disease. José Antonio Fischer Jr., MD PE at Discharge GENERAL: This is a well-nourished, well-developed patient, in no apparent distress. CARDIOVASCULAR: Regular rate and rhythm without murmurs, gallops, or rubs. RESPIRATORY: Clear to auscultation. Breath sounds equal bilaterally. No wheezes , rales, or rhonchi. GASTROINTESTINAL: Abdomen soft, non-tender, nondistended. Normal active bowel sounds MUSCULOSKELETAL: Extremities without clubbing, cyanosis, or edema. NEURO: Alert & Oriented x4 to person, place, time, situation. Moves all ext x4 Pt update on day of discharge Patient seen and evaluated today in follow-up for acute neurological changes which are resolved back to baseline. Patient seen by neurology. Recommendations for aspirin, Plavix taper. Patient did well with Elavil overnight Hospital Course This patient is a 86-year-old gentleman with a history of polymyalgia rheumatica who is come to the hospital with acute neurological complaints. He was concern for TIA given this patient's high risk status of chronic inflammation steroids from PMR. Patient seen by neurology. She did decline an MRI. She did have CT and other imaging which were unremarkable. EEG was done and is unremarkable for acute seizure activity. Patient has been taking her Xanax twice at night and the family is concerned that she has been using too much of it. Patient has declined home health care which will be helpful in this patient who lives alone. She was seen by physical therapy here in the hospital. Pt Condition on Discharge: Good Discharge Disposition: Discharge Home Discharge Time: <= 30 minutes Discharge Instructions DIET: Follow Instructions for: Heart Healthy Diet Activities you can perform: Regular-No Restrictions Follow up Referrals: PCP Follow-up - 11/23/17 New Medications: Clopidogrel (Plavix) 75 Mg Tab 75 MG PO DAILY for Blood Clot Prevention, #30 TAB 0 Refills Walker with Front Wheels (Walker with Front Wheels) 1 Mis Mis EA .XX DIRECTED, #1 0 Refills Amitriptyline (Amitriptyline) 50 Mg Tab 50 MG PO HS for sleep, #31 TAB do not take with xanax Continued Medications: Alprazolam (Xanax) 0.5 Mg Tab 0.5 MG PO BID PRN for ANXIETY, TAB [address] (Aspirin 81) 81 Mg Tabdr 81 MG PO DAILY, TAB 0 Refills Prednisone (Prednisone) 5 Mg Tab 5 MG PO DAILY, TAB 0 Refills Marilu Coon MD October 31, 2017 10:35
[2017-10-31 11:50] VITALS: BP 159/72; PULSE 63; RESP 18; TEMP 96; O2SAT 99
--- NOTE | 2017-11-02 17:45 | ECHRPT ---
Indication: TIA CONCLUSIONS The left ventricular systolic function is low normal with an estimated ejection fraction in the rang e of 50- 55%. Wall thickness is normal. Normal left ventricular size. Mild mitral valve regurgitation. Trace aortic valve regurgitation. There is mild tricuspid valve regurgitation. BP: / HR: Rhythm: Sinus MEASUREMENTS (Male / Female) Normal Values Technical Quality:Fair 2D ECHO LV Diastolic Diameter PLAX 3.7 cm 4.2 - 5.9 / 3.9 - 5.3 cm LV Systolic Diameter PLAX 2.9 cm IVS Diastolic Thickness 0.9 cm 0.6 - 1.0 / 0.6 - 0.9 cm LVPW Diastolic Thickness 0.9 cm 0.6 - 1.0 / 0.6 - 0.9 cm LV Relative Wall Thickness 0.5 LVOT Diameter 1.9 cm M-MODE Aortic Root Diameter MM 2.6 cm LA Systolic Diameter MM 2.6 cm LA Ao Ratio MM 1.0 AV Cusp Separation MM 1.5 cm DOPPLER AV Peak Velocity 110.0 cm/s AV Peak Gradient 4.8 mmHg AI Peak Velocity 326.0 cm/s AI Peak Gradient 42.5 mmHg AI Pressure Half Time 1063.0 ms LVOT Peak Velocity 133.0 cm/s LVOT Peak Gradient 7.1 mmHg AV Area Cont Eq pk 3.4 cm LV E' Septal Velocity 5.9 cm/s TR Peak Velocity 233.0 cm/s TR Peak Gradient 21.7 mmHg Right Atrial Pressure 10.0 mmHg Pulmonary Artery Systolic Pressu 31.7 mmHg Right Ventricular Systolic Press 31.7 mmHg PV Peak Velocity 103.0 cm/s PV Peak Gradient 4.2 mmHg FINDINGS LEFT VENTRICLE The left ventricular systolic function is low normal with an estimated ejection fraction in the rang e of 50- 55%. Wall thickness is normal. Normal left ventricular size. RIGHT VENTRICLE Normal right ventricular size and systolic function. LEFT ATRIUM The left atrial size is normal. RIGHT ATRIUM The right atrial size is normal. ATRIAL SEPTUM Normal atrial septal thickness without atrial level shunting by limited color doppler interrogation. AORTA The aortic root and proximal ascending aorta are normal in size on limited imaging. MITRAL VALVE Mild mitral valve regurgitation. AORTIC VALVE Trace aortic valve regurgitation. TRICUSPID VALVE There is mild tricuspid valve regurgitation. The estimated pulmonary arterial pressure is __ mmHg. PULMONARY VALVE No pulmonary valve regurgitation or stenosis. VESSELS The inferior vena cava is normal in size. PERICARDIUM No pericardial effusion. Ambrose Santos MD, FACC Edited by: historic site administrator historic site administrator (Electronically Signed) Final Date:31 Oct 2017 10:28 Amended: 02 Nov 2017 17:44
== END 2017-10-31 14:42 | disposition home or self-care (01) ==
LOC: PHED 22:01 → PHEDA 22:39 → PH3B 23:37
PROVIDERS: ADMIT Hospitalist; ATTEND Hospitalist
DX: M35.3 Polymyalgia rheumatica (principal); R41.82 Altered mental status, unspecified; G45.9 Transient cerebral ischemic attack, unspecified; G93.40 Encephalopathy, unspecified; R94.31 Abnormal electrocardiogram [ECG] [EKG]; Z79.82 Long term (current) use of aspirin; F41.9 Anxiety disorder, unspecified; H91.90 Unspecified hearing loss, unspecified ear; Z79.52 Long term (current) use of systemic steroids; Z82.49 Family history of ischemic heart disease and other diseases of the circulatory system
CPT/HCPCS: 70450; 70496; 70498; 80048; 80061; 80307; 81001; 82140; 82550; 82607; 82746; 84425; 84439; 84443; 84484; 85025; 85384; 85610; 85652; 85730; 86140; 86592; 86850; 86900; 86901; 93005; 93306; 95819; 96360; 97110; 97116; 97162; 97167; 99291; G0378; G8987; G8988; J7030; J7512; Q9967